=== PATIENT | female | born 1940 | race Two or more races ===

== ENCOUNTER 2017-08-20 15:10 | Outpatient (CLI) | payer OTHER ==
[~2017-08-20 15:10] MED LIST: ATORVASTATIN CA40 MG PO; CARdura 4MG TABLET PO; CLOPIDOGREL BIS75 MG PO; COZAAR PO; Coreg PO; FUROSEMIDE20 MG PO; GABAPENTIN600 MG; HYDRALAZINE HCL25 MG PO; HYDRALAZINE HCL50 MG PO; HumaLOG 100 UNIT/1 ML (3ML) SUBCUTANEO; Imdur 30MG PO; LASIX20 MG PO; Lantus 1000 U/10 ML SUBCUTANEO; MEDROL4 MG PO; NEURONTIN300 MG PO; NEURONTIN800 MG PO; NORVASC 5MG TAB PO; PREDNISONE20 MG PO; PROVENTIL3 ML/2.5 M IH; Synthroid PO; TOPROL XL50 M1 PO; TOPROL XL50 MG PO; TRAMADOL HCL-AP1 TAB PO; TUSSIONEX PENNKI5 ML PO; ZANTAC300 MG PO; ZOFRAN4 MG PO; ZOLPIDEM TARTRA10 MG PO
== END 2017-08-20 15:16 | disposition home or self-care (01) ==
LOC: RAD 15:10
DX: I10 Essential (primary) hypertension (principal); E11.8 Type 2 diabetes mellitus with unspecified complications; E78.4 Other hyperlipidemia

== ENCOUNTER → 2017-08-26 | Emergency (ER) | payer OTHER ==
[~2017-08-26] VITALS: Ht 152.4 cm; Wt 63.0 kg
== END | disposition left against medical advice (07) ==
LOC: ER 17:59
DX: Z53.20 Procedure and treatment not carried out because of patient's decision for unspecified reasons (principal)

== ENCOUNTER 2017-08-29 13:25 | Outpatient (CLI) | payer OTHER | END 2017-08-29 13:43 | disposition home or self-care (01) | LOC: RAD 13:25 → TOM 13:25 → RAD 13:43 | DX: R07.89 Other chest pain (principal); R07.82 Intercostal pain ==

== ENCOUNTER 2018-05-23 16:47 | Outpatient (CLI) | payer OTHER | END 2018-05-23 16:59 | disposition home or self-care (01) | LOC: RAD 16:47 | DX: R05 Cough (principal); R06.2 Wheezing ==

== ENCOUNTER 2018-11-16 06:30 | Inpatient (IN) | payer OTHER ==
[~2018-11-16] VITALS: Ht 154.9 cm; Wt 63.5 kg
[2018-11-16] MEDS ORDERED: ISOSORBIDE DINI30 MG (07:03)
[2018-11-16] MEDS ORDERED: CARVEDILOL6.25 MG PO (07:03)
[2018-11-16] MEDS ORDERED: NORVASC5 MG (07:04)
[2018-12-03] MEDS ORDERED: LIPITOR20 MG PO (14:40)
[2018-12-03] MEDS ORDERED: CLOPIDOGREL BIS75 MG PO (14:40)
[2018-12-03] MEDS ORDERED: CARVEDILOL12.5 MG PO (14:40)
[2018-12-03] MEDS ORDERED: ISOSORBIDE DINI30 MG PO (14:40)
[2018-12-03] MEDS ORDERED: HYDRALAZINE HCL50 MG PO (14:40)
== END 2018-12-03 14:58 | disposition home or self-care (01) | DRG 291 ==
LOC: ER 06:30 → ICU 10:35 → MEDJ 10:35 → ICU-2 10:35 → ICU 13:52 → MEDJ 11-18 20:23
PROVIDERS: ADMIT Internal Medicine
PROC: 4A033R1 Measurement of Arterial Saturation, Peripheral, Percutaneous Approach (ICD-10-PCS; 2018-11-16)
PROC: 3E0F7GC Introduction of Other Therapeutic Substance into Respiratory Tract, Via Natural or Artificial Opening (ICD-10-PCS; 2018-11-16)
PROC: B246ZZZ Ultrasonography of Right and Left Heart (ICD-10-PCS; principal; 2018-11-17)
PROC: 4A12X4Z Monitoring of Cardiac Electrical Activity, External Approach (ICD-10-PCS; 2018-11-17)
PROC: 05HM33Z Insertion of Infusion Device into Right Internal Jugular Vein, Percutaneous Approach (ICD-10-PCS; 2018-11-21)
PROC: 5A1D70Z Performance of Urinary Filtration, Intermittent, Less than 6 Hours Per Day (ICD-10-PCS; 2018-11-22)
PROC: 30233N1 Transfusion of Nonautologous Red Blood Cells into Peripheral Vein, Percutaneous Approach (ICD-10-PCS; 2018-11-25)
PROC: 05HM33Z Insertion of Infusion Device into Right Internal Jugular Vein, Percutaneous Approach (ICD-10-PCS; 2018-11-27)
PROC: B34KZZZ Ultrasonography of Bilateral Upper Extremity Arteries (ICD-10-PCS; 2018-11-29)
PROC: B54PZZZ Ultrasonography of Bilateral Upper Extremity Veins (ICD-10-PCS; 2018-11-29)
DX: I11.0 Hypertensive heart disease with heart failure (principal); J80 Acute respiratory distress syndrome; N18.6 End stage renal disease; N17.8 Other acute kidney failure; E87.4 Mixed disorder of acid-base balance; I50.23 Acute on chronic systolic (congestive) heart failure; I13.0 Hypertensive heart and chronic kidney disease with heart failure and stage 1 through stage 4 chronic kidney disease, or unspecified chronic kidney disease; I13.2 Hypertensive heart and chronic kidney disease with heart failure and with stage 5 chronic kidney disease, or end stage renal disease; E11.22 Type 2 diabetes mellitus with diabetic chronic kidney disease; E11.65 Type 2 diabetes mellitus with hyperglycemia; E11.40 Type 2 diabetes mellitus with diabetic neuropathy, unspecified; D63.1 Anemia in chronic kidney disease; I16.0 Hypertensive urgency; I25.10 Atherosclerotic heart disease of native coronary artery without angina pectoris; I08.3 Combined rheumatic disorders of mitral, aortic and tricuspid valves; I48.2 Chronic atrial fibrillation; E03.8 Other specified hypothyroidism; R31.0 Gross hematuria; G51.0 Bell's palsy; Z79.4 Long term (current) use of insulin; Z79.01 Long term (current) use of anticoagulants; Z99.2 Dependence on renal dialysis; F43.21 Adjustment disorder with depressed mood

== ENCOUNTER 2020-10-28 09:54 | Emergency (ER) | payer OTHER ==
[~2020-10-28] VITALS: Ht 154.9 cm; Wt 59.0 kg
[~2020-10-28 09:54] MED LIST changes: +CARVEDILOL12.5 MG PO; +CARVEDILOL6.25 MG PO; +ISOSORBIDE DINI30 MG; +ISOSORBIDE DINI30 MG PO; +LIPITOR20 MG PO; +NORVASC5 MG
[2020-10-28] MEDS ORDERED: [UNRECOGNIZED DRUG - OTHER] (10:14)
[2020-10-28] MEDS ORDERED: SKELAGESIC PO (14:36)
[2020-10-28] MEDS ORDERED: ULTRAM50 MG PO (14:36)
== END 2020-10-28 14:55 | disposition home or self-care (01) ==
LOC: ER 09:54
DX: G89.11 Acute pain due to trauma (principal); M25.551 Pain in right hip; M79.604 Pain in right leg; M25.561 Pain in right knee; M25.571 Pain in right ankle and joints of right foot; R10.2 Pelvic and perineal pain; R07.89 Other chest pain

== ENCOUNTER 2020-12-22 01:26 | Inpatient (IN) | payer OTHER ==
[~2020-12-22] VITALS: Ht 157.5 cm; Wt 65.8 kg
[~2020-12-22 01:26] MED LIST changes: +SKELAGESIC PO; +ULTRAM50 MG PO; +[UNRECOGNIZED DRUG - OTHER]
--- NOTE | 2020-12-22 01:50 | NUR ---
SE RECIBE PTE ALERTA Y ORIENTADA POR YAEL EN SILLA DE DEYSI. PTE EN COMPANIA DE NAVARRO HIJA QUIEN INDICA QUE NAVARRO MADRE MON PRESENTADO MAS DE 10 EPISODIOS DE VOMITOS ACOMPANADO DE DOLOR ABDOMINAL DESDE APROXIMADAMENTE LAS 10:00PM.
--- NOTE | 2020-12-22 03:18 | NUR ---
PACIENTE ALERTA Y ORIENTADA X3. SE ORIENTA SOBRE TX Y PROCEDIMIENTO A REALIZAR Y REFIRIO ENTENDER. SE REALIZA MUESTRAS DE LABORATORIO BAJO MEDIDAS ASEPTICAS. SE ADMINISTRA MEDICAMENTOS ORDENADOS POR MD. CANALIZACION PATENTE Y SOLEDAD DE EDEMA Y ERITEMA. SE OBSERVA PACIENTE LLORANDO Y SE LE PREGUNTA LA PAT. PTE VERBALIZA "EN AR CASA ME MALTRATAN". SE LE PREGUNTA QUIEN LA MALTRATA Y REFIERE QUE NAVARRO HIJA Y NAVARRO ESPOSO. SE LE PREGUNTA A QUE SE REFIERE CON QUE LA MALTRATAN Y REFIERE "AR HIJA Y AR ESPOSO NO ME CUIDAN Y ME LOY ROBER. AR ESPOSO HACE UN MES ME PUSO JACOB ALMOHADA EN LA BOCA PARA MATARME." SE LE PREGUNTA SI LO REPORTO A LA POLICIA O SE LO MENCIONO A NAVARRO HIJA. PACIENTE REFIERE "NO LO NOTIFIQUE A LA POLICIA POR MIEDO". SE TRATA DE CALMAR A LA PACIENTE Y SE LE NOTIFICA QUE TODO ESTARA MELCHOR, QUE ESTAMOS AQUI PARA AYUDARLA Y ESTA EN UN LUGAR SEGURO. PACIENTE DA LAS NIR. SE MANTIENE BAJO OBSERVACION POR CAMBIOS SIGNIFICATIVOS.
--- NOTE | 2020-12-22 03:30 | NUR ---
LA JUILSSA. FOUNTAIN NOTIFICA VIA TELEFONICA LA CONSULTA DE TRABAJADOR SOCIAL A LA JULISSA. TIFFANI TOMAS PRESENTA EL ROBIN. LA TRABAJADORA SOCIAL REFIERE QUE SI NO PUEDE LLEGAR EN LA MADRUGADA VENDRA A LAS 8:00AM LA JULISSA. NIDIA PA QUIEN ES LA TRABAJADORA SOCIAL DEL TURNO DEL 10/09.
--- NOTE | 2020-12-22 07:20 | NUR ---
SE RECIBE PACIENTE DE TURNO ANTERIOR ALERTA Y ORIENTADA EN TIEMPO LUGAR Y PERSONA. CON VENOPUNCION PATENTE, SOLEDAD DE ERITEMA Y EDEMA RECIBIENDO AL MOMENTO TERAPIA DE IVF'S 0.9 NSS 1000ML A 100ML/HR. PACIENTE SOLEDAD DE DOLOR AL MOMENTO. PENDIENTE CONSULTA CON TRABAJADOR SOCIAL. SE MANTIENE PACIENTE EN OBSERVACION POR CAMBIOS EN NAVARRO CONDICION.
[2020-12-23] MEDS ORDERED: OFLOXACIN5 ML (10:15)
[2020-12-23] MEDS ORDERED: PREDNISOLONE ACE5 ML (10:15)
[2020-12-23] MEDS ORDERED: LATANOPROST2.5 ML (10:15)
[2020-12-23] MEDS ORDERED: CLONAZEPAM0.5 MG (10:15)
[2020-12-23] MEDS ORDERED: ROSUVASTATIN CAL5 MG (10:16)
== END 2021-01-03 13:39 | disposition home or self-care (01) | DRG 291 ==
LOC: ER 01:26 → MEDI 11:09
PROVIDERS: ADMIT Internal Medicine; ATTEND Internal Medicine
PROC: 5A1D70Z Performance of Urinary Filtration, Intermittent, Less than 6 Hours Per Day (ICD-10-PCS; principal; 2020-12-22)
DX: I13.2 Hypertensive heart and chronic kidney disease with heart failure and with stage 5 chronic kidney disease, or end stage renal disease (principal); N18.6 End stage renal disease; I50.9 Heart failure, unspecified; E11.22 Type 2 diabetes mellitus with diabetic chronic kidney disease; Z99.2 Dependence on renal dialysis; Z91.15 Patient's noncompliance with renal dialysis; Z91.14 Patient's other noncompliance with medication regimen; F43.21 Adjustment disorder with depressed mood; E11.65 Type 2 diabetes mellitus with hyperglycemia; Z79.4 Long term (current) use of insulin; Z20.822 Contact with and (suspected) exposure to COVID-19

== ENCOUNTER 2021-07-14 14:04 | Emergency (ER) | payer OTHER ==
[~2021-07-14] VITALS: Ht 152.4 cm; Wt 55.8 kg
[~2021-07-14 14:04] MED LIST changes: +CLONAZEPAM0.5 MG; +LATANOPROST2.5 ML; +OFLOXACIN5 ML; +PREDNISOLONE ACE5 ML; +ROSUVASTATIN CAL5 MG
== END 2021-07-14 17:18 | disposition home or self-care (01) ==
LOC: ER 14:04
DX: M79.642 Pain in left hand (principal)

== ENCOUNTER 2021-09-01 12:21 | Emergency (ER) | payer OTHER ==
[~2021-09-01] VITALS: Ht 165.1 cm; Wt 63.5 kg
[2021-09-01] MEDS ORDERED: GABAPENTIN300 M2 PO (12:41)
[2021-09-01] MEDS ORDERED: AMBIEN10 MG PO (12:42)
[2021-09-01] MEDS ORDERED: NIFEDIPINE20 MG PO (12:42)
== END 2021-09-01 19:01 | disposition home or self-care (01) ==
LOC: ER 12:21
DX: S79.911A Unspecified injury of right hip, initial encounter (principal); W05.0XXA Fall from non-moving wheelchair, initial encounter; Y93.9 Activity, unspecified; Y92.019 Unspecified place in single-family (private) house as the place of occurrence of the external cause; Z88.8 Allergy status to other drugs, medicaments and biological substances; M19.90 Unspecified osteoarthritis, unspecified site; S69.91XA Unspecified injury of right wrist, hand and finger(s), initial encounter

== ENCOUNTER 2021-11-29 14:21 | Emergency (ER) | payer OTHER | END 2021-11-29 20:27 | disposition home or self-care (01) | LOC: ER 14:21 | DX: I12.0 Hypertensive chronic kidney disease with stage 5 chronic kidney disease or end stage renal disease (principal); N18.6 End stage renal disease; Z99.2 Dependence on renal dialysis; E11.21 Type 2 diabetes mellitus with diabetic nephropathy; E11.22 Type 2 diabetes mellitus with diabetic chronic kidney disease; Z88.6 Allergy status to analgesic agent; Z88.0 Allergy status to penicillin ==

== ENCOUNTER 2022-01-16 12:57 | Inpatient (IN) | payer OTHER ==
[~2022-01-16] VITALS: Ht 152.4 cm; Wt 63.5 kg
[~2022-01-16 12:57] MED LIST changes: +AMBIEN10 MG PO; +GABAPENTIN300 M2 PO; +NIFEDIPINE20 MG PO
[2022-01-16] MEDS ORDERED: NIFEDIPINE20 MG (13:19)
--- NOTE | 2022-01-16 13:19 | NUR ---
PACIENTE FEMENINA ALERTA Y ORIENTADA X3, REFIERE SER PACIENTE RENAL Y SE SIENTE CON STAS DEBILIDAD HACE VARIOS OCONNOR.
--- NOTE | 2022-01-16 14:15 | NUR ---
PACIENTE EVALUADO POR EL QUIEN ORDENA TRATAMIENTO. KELVIN CABRERA REALIZA MUESTRAS BAJO MEDIDAS ASEPTICAS Y ADMINISTRA [facility] [place].
[2022-01-17] MEDS ORDERED: CLONAZEPAM0.5 MG (08:17)
[2022-01-17] MEDS ORDERED: DOXAZOSIN MESYLA4 MG (08:17)
[2022-01-17] MEDS ORDERED: CARVEDILOL6.25 M1 (08:17)
[2022-01-17] MEDS ORDERED: FLONASE16 GM (08:17)
[2022-01-17] MEDS ORDERED: HYDROCORTISO453.6 GM (08:17)
[2022-01-17] MEDS ORDERED: GAS RELIEF125 MG (08:17)
[2022-01-17] MEDS ORDERED: REFRESH RELIEVA10 ML (08:17)
[2022-01-17] MEDS ORDERED: FAMOTIDINE20 MG (08:17)
[2022-01-17] MEDS ORDERED: NORVASC2.5 MG (08:18)
[2022-01-17] MEDS ORDERED: SERTRALINE HCL50 MG (08:18)
[2022-01-17] MEDS ORDERED: DULOXETINE HCL20 MG (08:18)
== END 2022-01-28 20:00 | disposition home or self-care (01) | DRG 314 ==
LOC: ER 12:57 → MEDI 20:23
PROVIDERS: ADMIT Internal Medicine; ATTEND Internal Medicine
PROC: B246ZZZ Ultrasonography of Right and Left Heart (ICD-10-PCS; principal; 2022-01-17)
PROC: B54DZZZ Ultrasonography of Bilateral Lower Extremity Veins (ICD-10-PCS; 2022-01-17)
PROC: 05HM33Z Insertion of Infusion Device into Right Internal Jugular Vein, Percutaneous Approach (ICD-10-PCS; 2022-01-25)
PROC: 5A1D70Z Performance of Urinary Filtration, Intermittent, Less than 6 Hours Per Day (ICD-10-PCS; 2022-01-25)
DX: T82.7XXA Infection and inflammatory reaction due to other cardiac and vascular devices, implants and grafts, initial encounter (principal); N18.6 End stage renal disease; I13.11 Hypertensive heart and chronic kidney disease without heart failure, with stage 5 chronic kidney disease, or end stage renal disease; N39.0 Urinary tract infection, site not specified; T80.212A Local infection due to central venous catheter, initial encounter; Z99.2 Dependence on renal dialysis; E11.22 Type 2 diabetes mellitus with diabetic chronic kidney disease; B96.89 Other specified bacterial agents as the cause of diseases classified elsewhere; E11.40 Type 2 diabetes mellitus with diabetic neuropathy, unspecified; Z79.4 Long term (current) use of insulin; K29.70 Gastritis, unspecified, without bleeding

== ENCOUNTER 2022-02-14 21:48 | Inpatient (IN) | payer OTHER ==
[~2022-02-14] VITALS: Ht 144.8 cm; Wt 90.7 kg
[~2022-02-14 21:48] MED LIST changes: +CARVEDILOL6.25 M1; +DOXAZOSIN MESYLA4 MG; +DULOXETINE HCL20 MG; +FAMOTIDINE20 MG; +FLONASE16 GM; +GAS RELIEF125 MG; +HYDROCORTISO453.6 GM; +NIFEDIPINE20 MG; +NORVASC2.5 MG; +REFRESH RELIEVA10 ML; +SERTRALINE HCL50 MG
== END 2022-02-24 14:45 | DRG 683 ==
LOC: ER 21:48 → SEC-K 02-15 11:32 → ICU-2 02-15 11:32 → ICU 02-17 07:01 → MEDJ 02-18 22:43
PROVIDERS: ADMIT Internal Medicine; ATTEND Internal Medicine
PROC: 5A1D70Z Performance of Urinary Filtration, Intermittent, Less than 6 Hours Per Day (ICD-10-PCS; principal; 2022-02-15)
PROC: BW28ZZZ Computerized Tomography (CT Scan) of Head (ICD-10-PCS; 2022-02-16)
PROC: B24BZZZ Ultrasonography of Heart with Aorta (ICD-10-PCS; 2022-02-19)
PROC: 5A1D70Z Performance of Urinary Filtration, Intermittent, Less than 6 Hours Per Day (ICD-10-PCS; 2022-02-20)
PROC: 5A1D70Z Performance of Urinary Filtration, Intermittent, Less than 6 Hours Per Day (ICD-10-PCS; 2022-02-22)
PROC: 5A1D70Z Performance of Urinary Filtration, Intermittent, Less than 6 Hours Per Day (ICD-10-PCS; 2022-02-24)
DX: N18.6 End stage renal disease (principal); E66.2 Morbid (severe) obesity with alveolar hypoventilation; R65.10 Systemic inflammatory response syndrome (SIRS) of non-infectious origin without acute organ dysfunction; N39.0 Urinary tract infection, site not specified; G93.49 Other encephalopathy; J81.1 Chronic pulmonary edema; I12.0 Hypertensive chronic kidney disease with stage 5 chronic kidney disease or end stage renal disease; R06.89 Other abnormalities of breathing; R09.02 Hypoxemia; E11.22 Type 2 diabetes mellitus with diabetic chronic kidney disease; G25.3 Myoclonus; Z99.2 Dependence on renal dialysis; B96.29 Other Escherichia coli [E. coli] as the cause of diseases classified elsewhere; E03.9 Hypothyroidism, unspecified; E78.5 Hyperlipidemia, unspecified; G62.89 Other specified polyneuropathies; I25.10 Atherosclerotic heart disease of native coronary artery without angina pectoris; Z20.822 Contact with and (suspected) exposure to COVID-19; I11.0 Hypertensive heart disease with heart failure; I50.9 Heart failure, unspecified

== ENCOUNTER 2022-05-01 16:07 | Emergency (ER) | payer OTHER ==
[~2022-05-01] VITALS: Ht 165.1 cm; Wt 54.4 kg
== END 2022-05-02 01:11 | disposition home or self-care (01) ==
LOC: ER 16:07
DX: R07.9 Chest pain, unspecified (principal); Z88.0 Allergy status to penicillin; Z88.6 Allergy status to analgesic agent; Z20.822 Contact with and (suspected) exposure to COVID-19; E11.9 Type 2 diabetes mellitus without complications; N18.6 End stage renal disease; I10 Essential (primary) hypertension; Z95.9 Presence of cardiac and vascular implant and graft, unspecified

== ENCOUNTER 2022-07-21 15:06 | Emergency (ER) | payer OTHER ==
[~2022-07-21] VITALS: Ht 152.4 cm; Wt 55.8 kg
== END 2022-07-22 17:06 | disposition home or self-care (01) ==
LOC: ER 15:06
DX: M79.661 Pain in right lower leg (principal); Z88.0 Allergy status to penicillin; Z88.6 Allergy status to analgesic agent; E11.22 Type 2 diabetes mellitus with diabetic chronic kidney disease; I12.0 Hypertensive chronic kidney disease with stage 5 chronic kidney disease or end stage renal disease; N18.6 End stage renal disease; Z99.2 Dependence on renal dialysis; E11.42 Type 2 diabetes mellitus with diabetic polyneuropathy

== ENCOUNTER 2022-08-23 11:47 | Emergency (ER) | payer OTHER ==
[~2022-08-23] VITALS: Ht 154.9 cm; Wt 55.8 kg
== END 2022-08-23 20:55 | disposition home or self-care (01) ==
LOC: ER 11:47
DX: M25.551 Pain in right hip (principal); Z88.6 Allergy status to analgesic agent; Z88.0 Allergy status to penicillin; Z91.048 Other nonmedicinal substance allergy status; E11.9 Type 2 diabetes mellitus without complications; Z79.4 Long term (current) use of insulin; I10 Essential (primary) hypertension; N28.9 Disorder of kidney and ureter, unspecified

== ENCOUNTER 2022-11-08 13:03 | Inpatient (IN) | payer OTHER ==
[~2022-11-08] VITALS: Ht 152.4 cm; Wt 55.8 kg
== END 2022-11-12 21:06 | disposition home or self-care (01) | DRG 682 ==
LOC: ER 13:03 → MEDI 22:59 → MEDJ 22:59
PROVIDERS: ADMIT Internal Medicine; ATTEND Internal Medicine
PROC: B54BZZZ Ultrasonography of Right Lower Extremity Veins (ICD-10-PCS; principal; 2022-11-08)
DX: I12.0 Hypertensive chronic kidney disease with stage 5 chronic kidney disease or end stage renal disease (principal); N18.6 End stage renal disease; N39.0 Urinary tract infection, site not specified; R65.10 Systemic inflammatory response syndrome (SIRS) of non-infectious origin without acute organ dysfunction; E11.22 Type 2 diabetes mellitus with diabetic chronic kidney disease; E11.65 Type 2 diabetes mellitus with hyperglycemia; Z99.2 Dependence on renal dialysis; Z79.4 Long term (current) use of insulin; Z74.01 Bed confinement status; E11.40 Type 2 diabetes mellitus with diabetic neuropathy, unspecified; I25.10 Atherosclerotic heart disease of native coronary artery without angina pectoris; R54 Age-related physical debility; F32.A Depression, unspecified; D64.9 Anemia, unspecified; M79.661 Pain in right lower leg

== ENCOUNTER 2023-01-05 19:27 | Inpatient (IN) | payer OTHER ==
[~2023-01-05] VITALS: Ht 152.4 cm; Wt 71.7 kg
[2023-01-05 20:00] LABS: HEMATOCRIT 39.7 % (36.0-45.00); HEMOGLOBIN 12.6 g/dL (12.0-15.00); MEAN CELL VOLUME 94.4 fL (80.00-100.00); MEAN CORPUSCULAR HEMOGLOBIN 29.9 pg (27.00-32.0); MEAN CORPUSCULAR HGB CONC 31.7 g/dl (32.0-36.0); PLATELET COUNT 193 K/uL (150-450)
[2023-01-05 20:31] LABS: ALBUMIN 3.7 gm/dL (3.4-5.0); BILIRUBIN TOTAL 0.39 mg/dL (0.3-1.2); CALCIUM 10.3 mg/dL (8.5-10.1); GFR 5.37; GLOBULINA 5.4 G/DL (2.4-3.5); POTASSIUM 5.44 mEq/L (3.5-5.1); TOTAL PROTEIN 9.1 gm/dL (6.4-8.2)
[2023-01-05 20:37] LABS: CREATININE SERUM 7.31 mg/dL (0.55-1.02)
[2023-01-05 22:39] LABS: ABG PO2 53.9 mmHg (80-100); ABG pCO2 49.9 mmHg (35-45)
[2023-01-05 22:40] LABS: BASE EXCESS -5.5 mmol/l; BICARBONATE 21.9 mmol/l (23-25); Tco2 23.4 mmol/l; allen test SATISFACTORY; o2 32 %; puncture site RADIAL RIGHT
[2023-01-05 22:42] LABS: SaO2 81.2 %
[2023-01-06 06:22] LABS: ABG PH 7.342 (7.35-7.45); ABG PO2 71.9 mmHg (80-100); ABG pCO2 44.3 mmHg (35-45); BASE EXCESS -2.3 mmol/l; BICARBONATE 23.5 mmol/l (23-25); Tco2 24.9 mmol/l; allen test SATISFACTORY; o2 21 %; puncture site RADIAL RIGHT
[2023-01-06 07:41] LABS: HEMATOCRIT 36.3 % (36.0-45.00); HEMOGLOBIN 11.7 g/dL (12.0-15.00); MEAN CELL VOLUME 93.3 fL (80.00-100.00); MEAN CORPUSCULAR HGB CONC 32.2 g/dl (32.0-36.0); PLATELET COUNT 171 K/uL (150-450); RED CELL DISTRIBUTION WIDTH 17.1 % (11.5-14.5)
[2023-01-06 07:47] LABS: INR 1.05; PARTIAL THROMBOPLASTIN TIME 28.8 SECONDS (22.0-34.0)
[2023-01-06 07:50] LABS: PH,URINE 5.5 (5.0-8.0); URINE APPEARANCE Cloudy; URINE BILIRRUBIN Negative (NEGATIVE); URINE BLOOD Large; URINE COLOR Yellow; URINE GLUCOSE Negative (NEGATIVE); URINE LEUKOCYTE Moderate; URINE NITRATE Negative
[2023-01-06 07:51] LABS: URINE EPITHELIAL CELLS 24.2 uL (0.0-38.8); URINE RBC 82.3 uL (0.0-20.8); URINE WBC 525.2 uL (0.0-23.2)
[2023-01-06 08:08] LABS: ERYTHROCYTE SEDIMENTATION RATE 78 mm/hr
[2023-01-06 08:20] LABS: ALBUMIN 3.3 gm/dL (3.4-5.0); BILIRUBIN TOTAL 0.4 mg/dL (0.3-1.2); BILIRUBIN,CONJUGATED 0.14 mg/dL (0.0-0.2); BILIRUBIN,UNCONJUGATED 0.26 mg/dL (0.0-0.6); CALCIUM 9.9 mg/dL (8.5-10.1); CHOL HDL RATIO 6.2 (0-5.0); GLOBULINA 4.8 G/DL (2.4-3.5); POTASSIUM 5.43 mEq/L (3.5-5.1); TOTAL PROTEIN 8.1 gm/dL (6.4-8.2)
[2023-01-06 08:58] LABS: URINE BACTERIA > 9821.5 uL (0.0-1933); URINE PROTEIN 300 (NEGATIVE)
[2023-01-06 10:25] LABS: C-REACTIVE PROTEIN 2.87 MG/DL (0.00-0.29); CREATININE SERUM 6.45 mg/dL (0.55-1.02); GFR 6.21
[2023-01-06 12:25] LABS: CKMB 60.5 NG/ML (0.5-3.6)
[2023-01-06 18:31] LABS: HEMATOCRIT 34.1 % (36.0-45.00); MEAN CELL VOLUME 93.5 fL (80.00-100.00); MEAN CORPUSCULAR HEMOGLOBIN 30.2 pg (27.00-32.0); MEAN CORPUSCULAR HGB CONC 32.3 g/dl (32.0-36.0); PLATELET COUNT 178 K/uL (150-450); RED BLOOD COUNT 3.65 M/uL (4.00-6.00); RED CELL DISTRIBUTION WIDTH 17.1 % (11.5-14.5)
[2023-01-06 21:10] LABS: CKMB 32.5 NG/ML (0.5-3.6)
[2023-01-07 09:07] LABS: HEMATOCRIT 31.1 % (36.0-45.00); HEMOGLOBIN 9.8 g/dL (12.0-15.00); MEAN CORPUSCULAR HEMOGLOBIN 29.8 pg (27.00-32.0); MEAN CORPUSCULAR HGB CONC 31.6 g/dl (32.0-36.0); PLATELET COUNT 143 K/uL (150-450); RED BLOOD COUNT 3.31 M/uL (4.00-6.00); RED CELL DISTRIBUTION WIDTH 17.5 % (11.5-14.5)
[2023-01-08 15:31] LABS: PH,URINE 5.5 (5.0-8.0); URINE APPEARANCE Turbid; URINE BILIRRUBIN Negative (NEGATIVE); URINE BLOOD Large; URINE COLOR Yellow; URINE GLUCOSE Negative (NEGATIVE); URINE LEUKOCYTE Large; URINE NITRATE Negative
[2023-01-08 15:32] LABS: URINE EPITHELIAL CELLS 201.5 uL (0.0-38.8)
[2023-01-08 15:36] LABS: URINE BACTERIA > 9821.5 uL (0.0-1933); URINE PROTEIN 300 (NEGATIVE); URINE WBC > 5548.3 uL (0.0-23.2)
[2023-01-09 07:24] LABS: ALBUMIN 3.2 gm/dL (3.4-5.0); BILIRUBIN TOTAL 0.49 mg/dL (0.3-1.2); CALCIUM 8.8 mg/dL (8.5-10.1); GFR 7.52; GLOBULINA 4.4 G/DL (2.4-3.5); MAGNESIUM 2.7 mg/dL (1.8-2.4); POTASSIUM 4.42 mEq/L (3.5-5.1); TOTAL PROTEIN 7.6 gm/dL (6.4-8.2)
[2023-01-09 07:56] LABS: CREATININE SERUM 5.46 mg/dL (0.55-1.02)
[2023-01-09 08:29] LABS: HEMATOCRIT 33.9 % (36.0-45.00); HEMOGLOBIN 10.9 g/dL (12.0-15.00); MEAN CELL VOLUME 93.5 fL (80.00-100.00); MEAN CORPUSCULAR HGB CONC 32.1 g/dl (32.0-36.0); RED BLOOD COUNT 3.62 M/uL (4.00-6.00); RED CELL DISTRIBUTION WIDTH 17.1 % (11.5-14.5)
[2023-01-09 08:39] LABS: PLATELET COUNT 116 K/uL (150-450)
[2023-01-10 07:26] LABS: HEMATOCRIT 33.3 % (36.0-45.00); HEMOGLOBIN 11.1 g/dL (12.0-15.00); MEAN CELL VOLUME 91.4 fL (80.00-100.00); MEAN CORPUSCULAR HEMOGLOBIN 30.5 pg (27.00-32.0); MEAN CORPUSCULAR HGB CONC 33.4 g/dl (32.0-36.0); RED BLOOD COUNT 3.64 M/uL (4.00-6.00); RED CELL DISTRIBUTION WIDTH 17.3 % (11.5-14.5)
[2023-01-10 07:28] LABS: PLATELET COUNT 118 K/uL (150-450)
[2023-01-10 07:38] LABS: BILIRUBIN TOTAL 0.5 mg/dL (0.3-1.2); CALCIUM 8.3 mg/dL (8.5-10.1); GFR 6.29; GLOBULINA 4.1 G/DL (2.4-3.5); MAGNESIUM 2.6 mg/dL (1.8-2.4); PHOSPHOROUS 8.4 mg/dL (2.5-4.9); POTASSIUM 4.58 mEq/L (3.5-5.1); TOTAL PROTEIN 7.1 gm/dL (6.4-8.2)
[2023-01-10 07:48] LABS: CREATININE SERUM 6.38 mg/dL (0.55-1.02)
[2023-01-10 15:11] LABS: PH,URINE 5.5 (5.0-8.0); URINE APPEARANCE Turbid; URINE BILIRRUBIN Negative (NEGATIVE); URINE BLOOD Large; URINE COLOR Yellow; URINE GLUCOSE Negative (NEGATIVE); URINE LEUKOCYTE Large; URINE NITRATE Negative; URINE UROBILINOGEN 0.2 E.U./dl
[2023-01-10 15:19] LABS: URINE BACTERIA 8586.8 uL (0.0-1933); URINE EPITHELIAL CELLS 158.4 uL (0.0-38.8); URINE RBC 208.8 uL (0.0-20.8); URINE WBC 5004.3 uL (0.0-23.2)
[2023-01-10 15:46] LABS: URINE MUCUS SCANT; URINE PROTEIN 300 (NEGATIVE)
[2023-01-10 15:47] LABS: URINE CRYSTALS FEW /HPF
[2023-01-12 06:30] LABS: HEMATOCRIT 30.3 % (36.0-45.00); HEMOGLOBIN 10.1 g/dL (12.0-15.00); MEAN CELL VOLUME 91.4 fL (80.00-100.00); MEAN CORPUSCULAR HEMOGLOBIN 30.6 pg (27.00-32.0); MEAN CORPUSCULAR HGB CONC 33.5 g/dl (32.0-36.0); PLATELET COUNT 140 K/uL (150-450); RED BLOOD COUNT 3.31 M/uL (4.00-6.00); RED CELL DISTRIBUTION WIDTH 17.7 % (11.5-14.5)
[2023-01-12 07:16] LABS: ALBUMIN 2.8 gm/dL (3.4-5.0); BILIRUBIN TOTAL 0.5 mg/dL (0.3-1.2); CALCIUM 8.7 mg/dL (8.5-10.1); GFR 7.48; MAGNESIUM 2.3 mg/dL (1.8-2.4); POTASSIUM 4.13 mEq/L (3.5-5.1); TOTAL PROTEIN 6.8 gm/dL (6.4-8.2)
[2023-01-12 07:22] LABS: CREATININE SERUM 5.49 mg/dL (0.55-1.02)
[2023-01-15 06:19] LABS: HEMOGLOBIN 9.6 g/dL (12.0-15.00); MEAN CELL VOLUME 91.3 fL (80.00-100.00); MEAN CORPUSCULAR HEMOGLOBIN 30.3 pg (27.00-32.0); MEAN CORPUSCULAR HGB CONC 33.2 g/dl (32.0-36.0); PLATELET COUNT 195 K/uL (150-450); RED BLOOD COUNT 3.18 M/uL (4.00-6.00); RED CELL DISTRIBUTION WIDTH 16.9 % (11.5-14.5)
[2023-01-15 07:10] LABS: ALBUMIN 2.5 gm/dL (3.4-5.0); BILIRUBIN TOTAL 0.56 mg/dL (0.3-1.2); GFR 7.13; GLOBULINA 4.1 G/DL (2.4-3.5); POTASSIUM 3.97 mEq/L (3.5-5.1); TOTAL PROTEIN 6.6 gm/dL (6.4-8.2)
[2023-01-15 07:21] LABS: CREATININE SERUM 5.72 mg/dL (0.55-1.02)
[2023-01-17 07:44] LABS: HEMATOCRIT 28.4 % (36.0-45.00); HEMOGLOBIN 9.2 g/dL (12.0-15.00); MEAN CELL VOLUME 90.9 fL (80.00-100.00); MEAN CORPUSCULAR HEMOGLOBIN 29.4 pg (27.00-32.0); MEAN CORPUSCULAR HGB CONC 32.3 g/dl (32.0-36.0); PLATELET COUNT 238 K/uL (150-450); RED BLOOD COUNT 3.13 M/uL (4.00-6.00); RED CELL DISTRIBUTION WIDTH 16.4 % (11.5-14.5)
[2023-01-17 08:50] LABS: ALBUMIN 2.6 gm/dL (3.4-5.0); BILIRUBIN TOTAL 0.59 mg/dL (0.3-1.2); CALCIUM 8.6 mg/dL (8.5-10.1); GFR 7.98; MAGNESIUM 2.5 mg/dL (1.8-2.4); PHOSPHOROUS 6.2 mg/dL (2.5-4.9); POTASSIUM 3.82 mEq/L (3.5-5.1); TOTAL PROTEIN 6.6 gm/dL (6.4-8.2)
[2023-01-17 09:20] LABS: CREATININE SERUM 5.19 mg/dL (0.55-1.02)
[2023-01-17] MEDS ORDERED: NORVASC2.5 M1 PO (19:01)
[2023-01-17] MEDS ORDERED: TOPROL XL25 M1 PO (19:02)
[2023-01-17] MEDS ORDERED: GABAPENTIN300 MG PO (19:03)
[2023-01-17] MEDS ORDERED: SERTRALINE HCL25 MG PO (19:03)
[2023-01-17] MEDS ORDERED: CIPRO100 MG PO (19:04)
== END 2023-01-17 21:05 | disposition home or self-care (01) | DRG 871 ==
LOC: ER 19:27 → ICU-2 22:08 → ICU 01-09 04:13 → MEDJ 01-16 18:06
PROVIDERS: General Practice; Internal Medicine; Internal Medicine Infectious Disease; Internal Medicine Nephrology; Specialist; ADMIT Internal Medicine; ATTEND Internal Medicine
PROC: 5A1D70Z Performance of Urinary Filtration, Intermittent, Less than 6 Hours Per Day (ICD-10-PCS; 2023-01-05)
PROC: B24BYZZ Ultrasonography of Heart with Aorta using Other Contrast (ICD-10-PCS; 2023-01-08)
PROC: 8E0ZXY6 Isolation (ICD-10-PCS; principal; 2023-01-09)
PROC: 5A1D70Z Performance of Urinary Filtration, Intermittent, Less than 6 Hours Per Day (ICD-10-PCS; 2023-01-12)
PROC: 5A1D70Z Performance of Urinary Filtration, Intermittent, Less than 6 Hours Per Day (ICD-10-PCS; 2023-01-15)
DX: A41.9 Sepsis, unspecified organism (principal); I21.A1 Myocardial infarction type 2; N18.6 End stage renal disease; R65.21 Severe sepsis with septic shock; I12.0 Hypertensive chronic kidney disease with stage 5 chronic kidney disease or end stage renal disease; N39.0 Urinary tract infection, site not specified; N17.9 Acute kidney failure, unspecified; I50.20 Unspecified systolic (congestive) heart failure; B37.0 Candidal stomatitis; J90 Pleural effusion, not elsewhere classified; J18.2 Hypostatic pneumonia, unspecified organism; N17.8 Other acute kidney failure; E11.22 Type 2 diabetes mellitus with diabetic chronic kidney disease; E87.79 Other fluid overload; Z79.4 Long term (current) use of insulin; Z99.2 Dependence on renal dialysis; Z66 Do not resuscitate; B96.20 Unspecified Escherichia coli [E. coli] as the cause of diseases classified elsewhere; I95.9 Hypotension, unspecified; I11.0 Hypertensive heart disease with heart failure; I35.0 Nonrheumatic aortic (valve) stenosis; I34.0 Nonrheumatic mitral (valve) insufficiency; G62.9 Polyneuropathy, unspecified; D64.9 Anemia, unspecified

== ENCOUNTER 2023-03-10 14:11 | Emergency (ER) | payer OTHER ==
[~2023-03-10] VITALS: Ht 152.4 cm; Wt 77.1 kg
[~2023-03-10 14:11] MED LIST changes: +CIPRO100 MG PO; +GABAPENTIN300 MG PO; +NORVASC2.5 M1 PO; +SERTRALINE HCL25 MG PO; +TOPROL XL25 M1 PO
[2023-03-10 17:39] LABS: HEMATOCRIT 34.6 % (36.0-45.00); HEMOGLOBIN 11.3 g/dL (12.0-15.00); MEAN CELL VOLUME 94.2 fL (80.00-100.00); MEAN CORPUSCULAR HEMOGLOBIN 30.7 pg (27.00-32.0); MEAN CORPUSCULAR HGB CONC 32.6 g/dl (32.0-36.0); PLATELET COUNT 188 K/uL (150-450); RED BLOOD COUNT 3.68 M/uL (4.00-6.00)
[2023-03-10 18:15] LABS: CALCIUM 11.4 mg/dL (8.5-10.1); MAGNESIUM 2.6 mg/dL (1.8-2.4); PHOSPHOROUS 5.8 mg/dL (2.5-4.9); POTASSIUM 4.72 mEq/L (3.5-5.1)
[2023-03-10 18:31] LABS: CREATININE SERUM 4.75 mg/dL (0.55-1.02); GFR 8.83
== END 2023-03-10 21:05 | disposition home or self-care (01) ==
LOC: ER 14:11
PROVIDERS: Emergency Medicine
DX: M79.604 Pain in right leg (principal); Z88.6 Allergy status to analgesic agent; Z88.0 Allergy status to penicillin; Z88.8 Allergy status to other drugs, medicaments and biological substances

== ENCOUNTER 2023-04-07 12:09 | Emergency (ER) | payer OTHER ==
[~2023-04-07] VITALS: Ht 160 cm; Wt 54.4 kg
[2023-04-07 13:43] LABS: HEMATOCRIT 37.3 % (36.0-45.00); HEMOGLOBIN 12.2 g/dL (12.0-15.00); MEAN CELL VOLUME 93.3 fL (80.00-100.00); MEAN CORPUSCULAR HEMOGLOBIN 30.5 pg (27.00-32.0); MEAN CORPUSCULAR HGB CONC 32.7 g/dl (32.0-36.0); PLATELET COUNT 178 K/uL (150-450); RED CELL DISTRIBUTION WIDTH 18.2 % (11.5-14.5)
[2023-04-07 14:12] LABS: CALCIUM 10.2 mg/dL (8.5-10.1); POTASSIUM 4.04 mEq/L (3.5-5.1)
[2023-04-07 14:26] LABS: CREATININE SERUM 5.05 mg/dL (0.55-1.02); GFR 8.21
[2023-04-07] MEDS ORDERED: LASIX20 MG PO (14:35)
[2023-04-07 14:58] LABS: ABG PH 7.365 (7.35-7.45); ABG PO2 71.7 mmHg (80-100); ABG pCO2 47.8 mmHg (35-45); BASE EXCESS 0.7 mmol/l; BICARBONATE 26.7 mmol/l (23-25); SaO2 93.6 %; Tco2 28.2 mmol/l
[2023-04-07 15:01] LABS: allen test SATISFACTORY; o2 21 %; puncture site RADIAL RIGHT
== END 2023-04-07 15:27 | disposition home or self-care (01) ==
LOC: ER 12:09
PROVIDERS: General Practice
DX: R60.0 Localized edema (principal); Z88.0 Allergy status to penicillin; Z88.8 Allergy status to other drugs, medicaments and biological substances; I12.0 Hypertensive chronic kidney disease with stage 5 chronic kidney disease or end stage renal disease; N18.6 End stage renal disease; Z99.2 Dependence on renal dialysis; E78.00 Pure hypercholesterolemia, unspecified; I11.9 Hypertensive heart disease without heart failure

== ENCOUNTER 2023-04-21 01:58 | Emergency (ER) | payer OTHER ==
[~2023-04-21] VITALS: Ht 152.4 cm; Wt 54.4 kg
[2023-04-21 03:35] LABS: HEMATOCRIT 38.2 % (36.0-45.00); HEMOGLOBIN 12.4 g/dL (12.0-15.00); MEAN CELL VOLUME 93.1 fL (80.00-100.00); MEAN CORPUSCULAR HEMOGLOBIN 30.2 pg (27.00-32.0); MEAN CORPUSCULAR HGB CONC 32.4 g/dl (32.0-36.0); PLATELET COUNT 153 K/uL (150-450); RED CELL DISTRIBUTION WIDTH 18.9 % (11.5-14.5)
[2023-04-21 03:47] LABS: D DIMER 2.79 MG/L; PARTIAL THROMBOPLASTIN TIME 32.2 SECONDS (22.0-34.0)
[2023-04-21 03:48] LABS: INR 1.05
[2023-04-21 03:58] LABS: ALBUMIN 3.5 gm/dL (3.4-5.0); BILIRUBIN TOTAL 0.48 mg/dL (0.3-1.2); CALCIUM 9.9 mg/dL (8.5-10.1); GFR 10.1; GLOBULINA 4.9 G/DL (2.4-3.5); POTASSIUM 3.93 mEq/L (3.5-5.1); TOTAL PROTEIN 8.4 gm/dL (6.4-8.2)
[2023-04-21 04:11] LABS: CREATININE SERUM 4.22 mg/dL (0.55-1.02)
[2023-04-21] MEDS ORDERED: PERCOGESIC 3251 EACH PO (12:20)
== END 2023-04-21 16:00 | disposition home or self-care (01) ==
LOC: ER 01:58
DX: R60.0 Localized edema (principal); Z88.6 Allergy status to analgesic agent; Z88.0 Allergy status to penicillin; Z88.8 Allergy status to other drugs, medicaments and biological substances; Z99.2 Dependence on renal dialysis
CPT/HCPCS: 36415; 93970; 96365; 99284; J2270

== ENCOUNTER 2023-10-04 22:56 | Inpatient (IN) | payer OTHER ==
[~2023-10-04] VITALS: Ht 154.9 cm; Wt 44.9 kg
[~2023-10-04 22:56] MED LIST changes: +PERCOGESIC 3251 EACH PO
[2023-10-04] MEDS ORDERED: NITROGLYCERIN 50MG IN NSS (KIT INCLUYE LINEA) IV STA (23:24)
[2023-10-04] MEDS ORDERED: RINGERS SOLUTION,LACTATED 500 ML IV STA (23:24)
[2023-10-04] MEDS ORDERED: FUROsemide 20 MG/2 ML VIAL IV STA (23:39)
[2023-10-04] MEDS ORDERED: IPRATROPIUM/ALBUTEROL SULFATE 3 ML AMPUL.NEB IH ONE (23:41)
[2023-10-05 00:20] LABS: HEMATOCRIT 31.1 % (36.0-45.00); MEAN CORPUSCULAR HEMOGLOBIN 31.1 pg (27.00-32.0); MEAN CORPUSCULAR HGB CONC 33.1 g/dl (32.0-36.0); PLATELET COUNT 233 K/uL (150-450); RED BLOOD COUNT 3.31 M/uL (4.00-6.00); RED CELL DISTRIBUTION WIDTH 16.5 % (11.5-14.5)
[2023-10-05 00:25] LABS: HEMOGLOBIN 10.3 g/dL (12.0-15.00)
[2023-10-05 00:53] LABS: INR 1.07; PARTIAL THROMBOPLASTIN TIME 30.9 SECONDS (22.0-34.0); PROTHROMBIN TIME 11.2 SECONDS (9.0-11.5)
[2023-10-05] MEDS ORDERED: IPRATROPIUM/ALBUTEROL SULFATE 3 ML AMPUL.NEB IH SCH (01:00)
[2023-10-05 01:06] LABS: ALBUMIN 2.8 gm/dL (3.4-5.0); BILIRUBIN TOTAL 0.46 mg/dL (0.3-1.2); CALCIUM 10.6 mg/dL (8.5-10.1); GFR 8.96; GLOBULINA 5.2 G/DL (2.4-3.5); POTASSIUM 5.16 mEq/L (3.5-5.1)
[2023-10-05 01:08] LABS: CREATININE SERUM 4.68 mg/dL (0.55-1.02)
[2023-10-05] MEDS ORDERED: NITROGLYCERIN IN 5 % DEXTROSE 50 MG/250 ML BOTTLE IV ONE (03:09)
[2023-10-05] MEDS ORDERED: IPRATROPIUM/ALBUTEROL SULFATE 3 ML AMPUL.NEB IH ONE (06:02)
[2023-10-05 07:07] LABS: ABG PH 7.376 (7.35-7.45); ABG PO2 83.1 mmHg (80-100); ABG pCO2 45.8 mmHg (35-45); SaO2 95.9 %
[2023-10-05 07:08] LABS: BASE EXCESS 0.6 mmol/l; BICARBONATE 26.3 mmol/l (23-25); Tco2 27.7 mmol/l; o2 21 %
[2023-10-05 07:09] LABS: allen test SATISFACTORY; puncture site RADIAL RIGHT
[2023-10-05] MEDS ORDERED: NITROGLYCERIN IN 5 % DEXTROSE 50 MG/250 ML KIT IV SCH (09:45)
[2023-10-05] MEDS ORDERED: FUROsemide 20 MG/2 ML VIAL IV SCH (16:13)
[2023-10-05] MEDS ORDERED: SODIUM CHLORIDE 0.45 % 1,000 ML IV SCH (16:15)
[2023-10-05] MEDS ORDERED: FAMOTIDINE/PF 20 MG in 0.9 % SODIUM CHLORIDE 8 ML IV PUSH SCH (16:18)
[2023-10-05] MEDS ORDERED: METOPROLOL TARTRATE 25 MG TABLET PO SCH (16:22)
[2023-10-05] MEDS ORDERED: CLOPIDOGREL BISULFATE 75 MG TABLET PO SCH (16:22)
[2023-10-05] MEDS ORDERED: SERTRALINE HCL 100 MG TABLET PO SCH (17:00)
[2023-10-05] MEDS ORDERED: FUROsemide 20 MG TABLET PO ONE (17:36)
[2023-10-05] MEDS ORDERED: FAMOTIDINE/PF 20 MG/2 ML VIAL ONE (17:37)
[2023-10-05] MEDS ORDERED: CLOPIDOGREL BISULFATE 75 MG TABLET PO ONE (17:37)
[2023-10-05 17:41] LABS: CKMB 3.3 NG/ML (0.5-3.6)
[2023-10-05] MEDS ORDERED: TRAMADOL HCL 50 MG TABLET PO PRN (18:00)
[2023-10-05] MEDS ORDERED: ACETAMINOPHEN 500 MG GEL..CAP PO PRN (18:00)
[2023-10-05] MEDS ORDERED: ZOLPIDEM TARTRATE 10 MG TABLET PO SCH (21:00)
[2023-10-05] MEDS ORDERED: GABAPENTIN 400 MG CAPSULE PO SCH (21:00)
[2023-10-05] MEDS ORDERED: FUROsemide 20 MG/2 ML VIAL ONE (21:59)
[2023-10-05] MEDS ORDERED: BACITRACIN-NEOMYCIN-POLYMYXIN 0.9 GM PACKET TOP ONE (22:17)
[2023-10-06] MEDS ORDERED: IPRATROPIUM/ALBUTEROL SULFATE 3 ML AMPUL.NEB IH ONE ×3 (01:07→16:43)
[2023-10-06 02:18] LABS: CKMB 2.4 NG/ML (0.5-3.6)
[2023-10-06 05:27] LABS: HEMATOCRIT 29.9 % (36.0-45.00); MEAN CELL VOLUME 95.5 fL (80.00-100.00); MEAN CORPUSCULAR HGB CONC 33.5 g/dl (32.0-36.0); PLATELET COUNT 190 K/uL (150-450); RED BLOOD COUNT 3.13 M/uL (4.00-6.00); RED CELL DISTRIBUTION WIDTH 16.1 % (11.5-14.5)
[2023-10-06 05:34] LABS: ERYTHROCYTE SEDIMENTATION RATE 35 mm/hr
[2023-10-06] MEDS ORDERED: LEVOTHYROXINE SODIUM 25 MCG TABLET PO SCH (06:00)
[2023-10-06 06:12] LABS: ALBUMIN 2.5 gm/dL (3.4-5.0); BILIRUBIN TOTAL 0.4 mg/dL (0.3-1.2); CALCIUM 9.9 mg/dL (8.5-10.1); GLOBULINA 4.2 G/DL (2.4-3.5); MAGNESIUM 2.5 mg/dL (1.8-2.4); PHOSPHOROUS 6.5 mg/dL (2.5-4.9); POTASSIUM 5.04 mEq/L (3.5-5.1); TOTAL PROTEIN 6.7 gm/dL (6.4-8.2)
[2023-10-06 06:15] LABS: C-REACTIVE PROTEIN 2.44 MG/DL (0.00-0.29); GFR 7.54; TSH 5.21 uIU/mL (0.358-3.74)
[2023-10-06 06:24] LABS: CREATININE SERUM 5.44 mg/dL (0.55-1.02)
[2023-10-06 07:09] LABS: URINE APPEARANCE Cloudy; URINE BILIRRUBIN Negative (NEGATIVE); URINE BLOOD Moderate; URINE COLOR Yellow; URINE GLUCOSE Negative (NEGATIVE); URINE LEUKOCYTE Large; URINE NITRATE Positive; URINE UROBILINOGEN 0.2 E.U./dl
[2023-10-06 07:14] LABS: URINE EPITHELIAL CELLS 6.9 uL (0.0-38.8); URINE RBC 198.4 uL (0.0-20.8); URINE WBC 2077.7 uL (0.0-23.2)
[2023-10-06 07:25] LABS: URINE BACTERIA > 9821.5 uL (0.0-1933); URINE PROTEIN 100 (NEGATIVE)
[2023-10-06] MEDS ORDERED: FUROsemide 20 MG/2 ML VIAL ONE (09:10)
[2023-10-06] MEDS ORDERED: FAMOTIDINE/PF 20 MG/2 ML VIAL ONE (09:11)
[2023-10-06 10:57] LABS: CKMB 1.7 NG/ML (0.5-3.6)
[2023-10-06] MEDS ORDERED: HEPARIN SODIUM,PORCINE 5,000 UNITS/ML VIAL ONE (16:34)
[2023-10-06] MEDS ORDERED: NITROGLYCERIN IN 5 % DEXTROSE 50 MG/250 ML BOTTLE IV ONE (19:57)
[2023-10-06] MEDS ORDERED: MEROPENEM 500 MG/VIAL VIAL IV SCH (21:00)
[2023-10-07 06:29] LABS: HEMATOCRIT 27.7 % (36.0-45.00); HEMOGLOBIN 9.2 g/dL (12.0-15.00); MEAN CELL VOLUME 95.5 fL (80.00-100.00); MEAN CORPUSCULAR HEMOGLOBIN 31.6 pg (27.00-32.0); MEAN CORPUSCULAR HGB CONC 33.1 g/dl (32.0-36.0); PLATELET COUNT 156 K/uL (150-450); RED CELL DISTRIBUTION WIDTH 15.9 % (11.5-14.5)
[2023-10-07 08:07] LABS: ALBUMIN 2.6 gm/dL (3.4-5.0); ALKALINE PHOSPHATASE 55 U/L (50-136); ANION GAP 9 (10.0-20.0); AST/SGOT 12 U/L (15-37); BILIRUBIN TOTAL 0.41 mg/dL (0.3-1.2); BLOOD UREA NITROGEN 20 mg/dL (7-18); BUN CREA RATIO 6 (7.0-25.0); CALCIUM 10.1 mg/dL (8.5-10.1); CARBON DIOXIDE 31 mEq/L (21-32); CHLORIDE 103 mmol/L (98-107); CREATININE SERUM 3.62 mg/dL (0.55-1.02); GFR 12.06; GLOBULINA 4.3 G/DL (2.4-3.5); GLUCOSE FASTING 87 mg/dL (65-100); OSMOLALITY SERUM 278 MOSM/KG (275-295); PHOSPHOROUS 5.3 mg/dL (2.5-4.9); POTASSIUM 4.66 mEq/L (3.5-5.1); SODIUM 138 mmol/L (136-145); TOTAL PROTEIN 6.9 gm/dL (6.4-8.2)
[2023-10-07 08:09] LABS: ALT/SGPT < 6 U/L (12-78)
[2023-10-08] MEDS ORDERED: HEPARIN SODIUM,PORCINE 5,000 UNITS/ML VIAL IV NR (20:00)
[2023-10-08] MEDS ORDERED: VANCOMYCIN HCL 500 MG VIAL IV SCH (21:00)
[2023-10-09] MEDS ORDERED: LEVOTHYROXINE SODIUM 25 MCG TABLET PO SCH (09:00)
[2023-10-10 07:30] LABS: HEMATOCRIT 29.1 % (36.0-45.00); HEMOGLOBIN 9.6 g/dL (12.0-15.00); MEAN CELL VOLUME 95.1 fL (80.00-100.00); MEAN CORPUSCULAR HEMOGLOBIN 31.5 pg (27.00-32.0); MEAN CORPUSCULAR HGB CONC 33.1 g/dl (32.0-36.0); PLATELET COUNT 154 K/uL (150-450); RED BLOOD COUNT 3.06 M/uL (4.00-6.00)
[2023-10-10 07:34] LABS: RED CELL DISTRIBUTION WIDTH 16.2 % (11.5-14.5)
[2023-10-10 07:55] LABS: ALBUMIN 2.6 gm/dL (3.4-5.0); ALKALINE PHOSPHATASE 52 U/L (50-136); ANION GAP 9 (10.0-20.0); AST/SGOT 14 U/L (15-37); BILIRUBIN TOTAL 0.41 mg/dL (0.3-1.2); BLOOD UREA NITROGEN 21 mg/dL (7-18); CALCIUM 10.1 mg/dL (8.5-10.1); CARBON DIOXIDE 26 mEq/L (21-32); CHLORIDE 103 mmol/L (98-107); GLOBULINA 4.1 G/DL (2.4-3.5); GLUCOSE FASTING 75 mg/dL (65-100); OSMOLALITY SERUM 268 MOSM/KG (275-295); PHOSPHOROUS 6.3 mg/dL (2.5-4.9); POTASSIUM 5.43 mEq/L (3.5-5.1); SODIUM 133 mmol/L (136-145); TOTAL PROTEIN 6.7 gm/dL (6.4-8.2)
[2023-10-10 07:57] LABS: ALT/SGPT < 6 U/L (12-78); BUN CREA RATIO 5 (7.0-25.0); CREATININE SERUM 4.22 mg/dL (0.55-1.02)
[2023-10-10] MEDS ORDERED: HEPARIN SODIUM,PORCINE 5,000 UNITS/ML VIAL IJ ONE (16:45)
[2023-10-11] MEDS ORDERED: FAMOtidine 20 MG TABLET PO SCH (09:00)
[2023-10-12 06:37] LABS: HEMATOCRIT 28.8 % (36.0-45.00); HEMOGLOBIN 9.7 g/dL (12.0-15.00); MEAN CELL VOLUME 92.7 fL (80.00-100.00); MEAN CORPUSCULAR HEMOGLOBIN 31.3 pg (27.00-32.0); MEAN CORPUSCULAR HGB CONC 33.8 g/dl (32.0-36.0); PLATELET COUNT 133 K/uL (150-450); RED CELL DISTRIBUTION WIDTH 15.6 % (11.5-14.5)
[2023-10-12 06:58] LABS: ALBUMIN 2.4 gm/dL (3.4-5.0); ALKALINE PHOSPHATASE 53 U/L (50-136); ANION GAP 11 (10.0-20.0); AST/SGOT 14 U/L (15-37); BILIRUBIN TOTAL 0.42 mg/dL (0.3-1.2); BLOOD UREA NITROGEN 20 mg/dL (7-18); CALCIUM 9.4 mg/dL (8.5-10.1); CARBON DIOXIDE 23 mEq/L (21-32); CHLORIDE 101 mmol/L (98-107); GLOBULINA 3.8 G/DL (2.4-3.5); GLUCOSE FASTING 76 mg/dL (65-100); OSMOLALITY SERUM 264 MOSM/KG (275-295); PHOSPHOROUS 5.5 mg/dL (2.5-4.9); POTASSIUM 4.17 mEq/L (3.5-5.1); SODIUM 131 mmol/L (136-145); TOTAL PROTEIN 6.2 gm/dL (6.4-8.2)
[2023-10-12 07:05] LABS: ALT/SGPT < 6 U/L (12-78); BUN CREA RATIO 5 (7.0-25.0); GFR 10.24
[2023-10-12 07:07] LABS: CREATININE SERUM 4.17 mg/dL (0.55-1.02)
[2023-10-12] MEDS ORDERED: LEVOTHYROXINE SODIUM 25 MCG TABLET PO SCH (09:00)
[2023-10-12] MEDS ORDERED: HEPARIN SODIUM,PORCINE 5,000 UNITS/ML VIAL IV ONE (14:45)
== END 2023-10-14 16:50 | disposition home or self-care (01) | DRG 280 ==
LOC: ER 22:56 → ICU 10-05 16:40 → SEC-K 10-05 16:40 → ICU-2 10-06 12:44 → ICU 10-06 20:28
PROVIDERS: Internal Medicine Nephrology; ADMIT Internal Medicine; ATTEND Internal Medicine
PROC: 02HV33Z Insertion of Infusion Device into Superior Vena Cava, Percutaneous Approach (ICD-10-PCS; principal; 2023-10-06)
PROC: 5A1D70Z Performance of Urinary Filtration, Intermittent, Less than 6 Hours Per Day (ICD-10-PCS; 2023-10-06)
PROC: 5A1D70Z Performance of Urinary Filtration, Intermittent, Less than 6 Hours Per Day (ICD-10-PCS; 2023-10-10)
DX: I50.9 Heart failure, unspecified (principal); N18.6 End stage renal disease; I21.4 Non-ST elevation (NSTEMI) myocardial infarction; I24.9 Acute ischemic heart disease, unspecified; N39.0 Urinary tract infection, site not specified; J81.1 Chronic pulmonary edema; Z99.2 Dependence on renal dialysis; G62.9 Polyneuropathy, unspecified; B96.5 Pseudomonas (aeruginosa) (mallei) (pseudomallei) as the cause of diseases classified elsewhere; D64.9 Anemia, unspecified; E11.9 Type 2 diabetes mellitus without complications; Z79.4 Long term (current) use of insulin; I10 Essential (primary) hypertension

== ENCOUNTER 2023-11-06 15:54 | Emergency (ER) | payer OTHER ==
[~2023-11-06] VITALS: Ht 157.5 cm; Wt 89.8 kg
[2023-11-06 17:22] LABS: HEMATOCRIT 30.3 % (36.0-45.00); HEMOGLOBIN 9.9 g/dL (12.0-15.00); MEAN CELL VOLUME 91.6 fL (80.00-100.00); MEAN CORPUSCULAR HEMOGLOBIN 30.1 pg (27.00-32.0); MEAN CORPUSCULAR HGB CONC 32.8 g/dl (32.0-36.0); PLATELET COUNT 244 K/uL (150-450); RED BLOOD COUNT 3.31 M/uL (4.00-6.00); RED CELL DISTRIBUTION WIDTH 16.9 % (11.5-14.5)
[2023-11-06 17:50] LABS: CALCIUM 9.3 mg/dL (8.5-10.1); GFR 6.48; POTASSIUM 5.05 mEq/L (3.5-5.1)
[2023-11-06 17:56] LABS: CREATININE SERUM 6.2 mg/dL (0.55-1.02)
[2023-11-06 19:20] LABS: URINE APPEARANCE Cloudy; URINE BILIRRUBIN Negative (NEGATIVE); URINE BLOOD Small; URINE COLOR Yellow; URINE GLUCOSE Negative (NEGATIVE); URINE KETONE Negative (NEGATIVE); URINE LEUKOCYTE Moderate; URINE NITRATE Negative; URINE UROBILINOGEN 0.2 E.U./dl
[2023-11-06 19:24] LABS: URINE BACTERIA 4467.8 uL (0.0-1933); URINE RBC 42.2 uL (0.0-20.8); URINE WBC 2119.2 uL (0.0-23.2)
[2023-11-06 19:26] LABS: URINE CAST 0.15 uL (0.0-1.40); URINE PROTEIN 100 (NEGATIVE)
[2023-11-06] MEDS ORDERED: CIPROFLOXACIN IN 5 % DEXTROSE 400 MG/200 ML PIGGYBAG IV ONE ×2 (19:30→19:45)
[2023-11-07] MEDS ORDERED: 0.9 % SODIUM CHLORIDE 1,000 ML IV SCH (09:00)
== END 2023-11-06 21:16 | disposition home or self-care (01) ==
LOC: ER 15:54
PROVIDERS: Emergency Medicine
DX: N39.0 Urinary tract infection, site not specified (principal); Z88.0 Allergy status to penicillin; Z88.6 Allergy status to analgesic agent; Z88.9 Allergy status to unspecified drugs, medicaments and biological substances
CPT/HCPCS: 36415; 71045; 73502; 96365; 99283; J0744